=== PATIENT | male | born 1990 | race Caucasian/White ===

== ENCOUNTER 2023-08-20 20:32 | Emergency (ER) | payer OTHER, SELFPAY ==
[2023-08-20 20:39] VITALS: BP 146/96; PULSE 84; RESP 16; TEMP 37.1; O2SAT 98
--- NOTE | 2023-08-20 21:51 | CRLHL7_ITS ---
For Patients: As a result of the Century Cures Act, medical imaging exams and procedure reports are released immediately into your electronic medical record. You may view this report before your referring provider. If you have questions, please contact your health care provider. INDICATION: Head injury, impact right frontal, 2 days ago, worsening headache, vomiting. COMPARISON: None. TECHNIQUE: CT of the head without IV contrast. Coronal and sagittal reconstructions. FINDINGS: No intracranial hemorrhage, mass effect, or evidence of acute infarct. No midline shift. No abnormal extra-axial fluid collections. Normal caliber ventricular system. Orbits and extraocular muscles are symmetric. Mucosal thickening in the right sphenoid sinus. The paranasal sinuses and mastoid air cells are otherwise clear. No acute fracture identified. Soft tissues are unremarkable. IMPRESSION: No acute intracranial findings. Please note that all CT scans at this facility use dose modulation, iterative reconstruction, and/or weight-based dosing when appropriate to reduce radiation dose to as low as reasonably achievable. Dictated by Crystal Amaya MD @ 08/20/2023 10:50:33 PM (Electronically Signed)
[2023-08-20] MEDS: ONDANSETRON ODT 4 MG TAB PO (22:05)
[2023-08-20] MEDS: IBUPROFEN 600 MG TABLET PO (22:05)
--- NOTE | 2023-08-20 22:55 | ED_ITS ---
HPI - General Adult General Date Seen: 08/20/23 Chief complaint: Headache/Migraine Stated complaint: hit head few days ago; has headache/nausea Time Seen by Provider: 08/20/23 20:44 History of Present Illness HPI narrative: This is a very pleasant 33-year-old gentleman with a past medical history of anxiety, depression (currently controlled on meds) who presents to the ER today for evaluation of head injury with forehead laceration and resulting headache, nausea. He accidentally injured himself 2 nights ago on night. He was using a cat's claw to pull a nail from a 2 x 4 at his home. He is going through a whole house remodel. The nail slipped in his hand with the tool in it came back and he struck himself forcefully in the right side of his forehead. No loss of consciousness. He did suffer a laceration. His mother wash the wound and then applied butterfly bandages. Since then the wound has been healing well. It is scabbed but not bleeding. No redness. Initially he did not have any significant headache or other symptoms. Yesterday afternoon/evening he was working on his house again and started to develop a fairly diffuse headache. Headache is worse again today when working on his house and else associated with nausea. He is not vomiting. He feels mildly foggy with his thinking. No confusion or forgetfulness. No seizure. No imbalance. No other injuries. No neck pain. No numbness or tingling in his arms or legs. No personal or family history of coagulopathy or hemophilia. He is not anticoagulated. Related Data Allergies Allergy/AdvReac Type Severity Reaction Status Date / Time No Known Drug Allergies Allergy Verified 08/20/23 20:42 Exam Narrative: Exam Narrative: Constitutional: Appears well-developed and well-nourished. Alert. Conversant. Non toxic. HENT: Head: He has a healing linear abrasion/laceration is right forehead. The wound edges well apposed with butterfly bandages. No bleeding. No signs of surrounding infection. No depressed skull fracture, Raccoon Eyes, Godfrey's sign, or hemotympanum. Face normal. TMs normal. Nose: Nose normal. Mouth/Throat: Oral mucosa is clear and moist. no trismus. Pharynx normal. Tonsils symmetric. No tonsillar enlargement, erythema, or exudate. Eyes: Conjunctivae normal. EOM normal. Pupils equal, round, and reactive to light. No scleral icterus. Neck: Normal range of motion. Neck supple. No tracheal deviation present. Cardiovascular: Normal rate, regular rhythm. No gallop. No friction rub. No murmur heard. Symmetric radial artery pulses Pulmonary/Chest: Effort normal. No stridor. No respiratory distress. No wheezes. No rales. No rhonchi . No tenderness. Abdominal: Soft. Bowel sounds normal. No distension. No mass. No tenderness. No rebound. No guarding. Musculoskeletal: RUE: Normal range of motion. No tenderness. No deformity LUE: Normal range of motion. No tenderness. No deformity RLE: Normal range of motion. No edema. No tenderness. No deformity LLE: Normal range of motion. No edema. No tenderness. No deformity Lymph: No cervical adenopathy. Neurological: Mental status normal. Attention normal. Alert and oriented x3. GCS 15. Memory normal. Speech fluent. Cognition normal. Cranial Nerves intact II-XII except I did not formally test gag or visual ac uity. EOMI. Palate elevates symmetrically and tongue protrudes in the midline. Strength: 5/5 trapezius on the right and left 5/5 deltoid on the right and left 5/5 biceps on the right and left 5/5 triceps on the right and left 5/5 sewer separation designer on the right and left 5/5 thumb opposition on the right and le ft 5/5 finger abduction on the right and le ft 5/5 hip flexors (L3) on the right and le ft 5/5 quadriceps (L4) on the right and lef t 5/5 tibialis anterior on the right and l eft 5/5 EHL (L5) on the right and left 5/5 gastrocnemius (S1) on the right and left 5/5 hamstring on the right and left Sensation intact to light touch in both upper extremities (C4-T1) Sensation intact to light touch in Both lower extremities (L4-S1). Finger to nose and coordination normal. Gait normal. Skin: Skin is warm and dry. No rash noted. No pallor. Normal capillary refill. Psychiatric: Normal mood. Normal affect. Polite. Const: Vital Signs, click to edit/add: Vital Signs - 24 hr 08/20/23 20:39 Temperature 98.7 F Pulse Rate [Left P ulse Oximeter] 84 Respiratory Rate 16 Blood Pressure [Ri ght Upper Arm] 146/96 H Pulse Oximetry 98 Oxygen Delivery Me thod Room Air Course Vital Signs Vital signs: Initial Vital Signs Temperature 98.7 F 08/20/23 20:39 Temperature Source Temporal Artery Scan 08/20/23 20:39 Pulse Rate 84 08/20/23 20:39 Pulse Rhythm Regular 08/20/23 20:39 Respiratory Rate 16 08/20/23 20:39 Blood Pressure 146/96 H 08/20/23 20:39 Blood Pressure Mean 112 H 08/20/23 20:39 Blood Pressure Position Sitting 08/20/23 20:39 Pulse Oximetry 98 08/20/23 20:39 Oxygen Delivery Method Room Air 08/20/23 20:39 Vital Signs Temperature 98.7 F 08/20/23 20:39 Pulse Rate 84 08/20/23 20:39 Respiratory Rate 16 08/20/23 20:39 Blood Pressure 146/96 H 08/20/23 20:39 Pulse Oximetry 98 08/20/23 20:39 Oxygen Delivery Method Room Air 08/20/23 20:39 Temperature 98.7 F 08/20/23 20:39 Pulse Rate 84 08/20/23 20:39 Respiratory Rate 16 08/20/23 20:39 Blood Pressure 146/96 H 08/20/23 20:39 Pulse Oximetry 98 08/20/23 20:39 Oxygen Delivery Method Room Air 08/20/23 20:39 Medications Administered Medications: Generic Name Dose Route Start Last Admin Trade Name Paco PRN Reason Stop Dose Admin Ibuprofen 600 mg 08/20/23 21:50 08/20/23 22:05 Ibuprofen 600 Mg Tablet PO 08/20/23 21:51 600 mg ONCE ONE Administration Ondansetron HCl 4 mg 08/20/23 21:50 08/20/23 22:05 Ondansetron Odt 4 Mg Tab PO 08/20/23 21:51 4 mg ONCE ONE Administration Medical Decision Making MDM Narrative Medical decision making narrative: This patient presents with a head injury. He does have a healing wound to the skin on his right forehead which was nicely cleaned and closed using butterfly bandages by his mother at home, 2 days ago on the day of injury. At this point I do in the he would benefit from removing the dressings or sutures. Patient was concerned primarily about worsening headache and nausea that began yesterday and is worse today. The differential diagnosis includes skull fracture, epidural hematoma, subdural hematoma, intracerebral hemorrhage, and traumatic subarachnoid hemorrhage; all of these are highly unlikely in this clinical setting. This patient denies severe headache, seizure, and has no focal neurological findings. Patient did not have any seizure after the injury, and is not anticoagulated . The patient has a normal GCS. They have not had any significant vomiting. They have no sign of open or depressed skull fracture /basilar skull fracture. They are less than age 65. The patient did not have prolonged LOC, sleepiness, repeated emesis, poor orientation, or significant irritability. They are low risk by the [place] head CT rule. I have discussed the risk/benefit analysis with the patient and family regarding CT imaging. I discussed that he has very low risk for intracranial bleeding and that treatment with supportive care and monitoring is warranted without imaging. However discussed that he would be criteria for head CT imaging based on the [place] head CT ruled. Ultimately he is very concerned about potential intracranial bleeding. It would be therapeutic for him to know whether there truly is bleeding or not. Therefore we went ahead with CT scan. It is normal. The patient/family understand that they must return if any red flags appear/develop in the coming hours/days, as this may represent an indication to perform a CT scan. I have noted that red flags include: headaches that get worse, increased drowsiness, strange behavior, repetitive speech, seizures, repeated vomiting, growing confusion, increased irritability, slurred speech, weakness or numbness, and loss of responsiveness. This information will also be provided in writing at discharge. I have discussed the second impact syndrome, and the importance of not sustaining repeated concussion in the next 1-2 weeks. Post concussive syndrome is also discussed. The patient's questions were answered. They have a responsible adult to accompany them home. Imaging Data CT scan - head: Attestation: I have reviewed the pertinent imaging results. Radiologist's impression: IMPRESSION: No acute intracranial findings. Discharge Plan Discharge Clinical Impression: Postconcussion syndrome, Head injury Patient Disposition: Home, Self-Care Condition: Stable Instructions: Head Injury (ED), Post Concussion Syndrome (ED) Additional Instructions: As we discussed, if your not completely improved after 7 days, please recheck with your regular doctor or come back to the ER for a recheck. If you have worsening symptoms, uncontrolled headache, uncontrolled vomiting, confusion, or any concerns come back to the ER right away. Please try to limit strenuous physical activity or strenuous cognitive activity such as screens or computers if they are triggering your headache or making her symptoms worse. Follow Up/Referrals: Provider,Not a Local [Primary Care Provider] - Stand Alone Forms: [facility] Info Instructions
[2023-08-20 23:20] VITALS: BP 140/72; PULSE 80; RESP 16; O2SAT 98
== END 2023-08-20 23:23 | disposition home or self-care (01) ==
PROVIDERS: Emergency Provider Emergency Medicine
DX: F07.81 Postconcussional syndrome (principal)
CPT/HCPCS: 70450; 99283; 99284; A9270